=== PATIENT | female | born 1985 | race Two or more races ===

== ENCOUNTER 2018-10-05 09:02 | Emergency (ER) | payer MEDICAID ==
[~2018-10-05] VITALS: Ht 177.8 cm; Wt 104.0 kg
[2018-10-05] MEDS ORDERED: SODIUM CHLORIDE 0.9% 1,000 ML IV ONE (09:18)
[2018-10-05 10:31] LABS: BASOPHILS % 0.6 % (0.0-2.0); EOSINOPHILS % 1.3 % (0.0-5.0); HEMATOCRIT. 36.8 % (36.0-48.0); HEMOGLOBIN. 12.6 g/dL (12.0-16.0); LYMPHOCYTES % 25.9 % (20.0-50.0); MEAN CORPUSCULAR HEMOGLOBIN 32.4 pg (28.0-32.0); MEAN CORPUSCULAR VOLUME 94.5 fL (81.0-99.0); MONOCYTES % 6.1 % (2.0-8.0); NEUTROPHILS % 66.1 % (40.0-76.0); RED CELL DISTRIBUTION WIDTH 12.7 % (11.6-14.6)
[2018-10-05] MEDS ORDERED: KETOROLAC 30MG/ML VIAL IV ONE (10:45)
[2018-10-05 10:49] LABS: PLATELET 258 x1000/uL (130-400)
[2018-10-05 12:04] LABS: CHLORIDE 108 mEq/L (98-107)
[2018-10-05 12:10] LABS: HCG SCREEN NEGATIVE
[2018-10-05 12:14] LABS: *BARBITURATES SCREEN URINE NEGATIVE (NEGATIVE); *BENZODIAZEPINES SCREEN URINE NEGATIVE (NEGATIVE); *COCAINE SCREEN URINE NEGATIVE (NEGATIVE); METHADONE URINE SCREEN NEGATIVE (NEGATIVE)
[2018-10-05 12:15] LABS: *AMPHETAMINES SCREEN URINE NEGATIVE (NEGATIVE); CANNABINOID URINE SCREEN NEGATIVE (NEGATIVE); OPIATES URINE SCREEN NEGATIVE (NEGATIVE); PHENCYCLIDINE URINE SCREEN NEGATIVE (NEGATIVE)
[2018-10-05 13:25] VITALS: BP 124/62
== END 2018-10-05 13:53 | disposition home or self-care (01) ==
LOC: ER 09:02
DX: R07.89 Other chest pain (principal); Z98.890 Other specified postprocedural states
CPT/HCPCS: 36415; 71045; 80053; 80305; 81025; 83880; 84484; 84703; 85025; 85379; 93005; 93970; 96374; 99284; J1885; J7030